=== PATIENT | male | born 1960 | race Caucasian/White ===

== ENCOUNTER 2019-10-05 17:23 | Emergency (ER) | payer MEDICARE, OTHER ==
[~2019-10-05] VITALS: Ht 172.7 cm; Wt 72.6 kg
[~2019-10-05 17:23] MED LIST: ANIMAL CHEWS1 EACH PO; ATARAX50 MG ORAL; CITALOPRAM HBR20 M1 ORAL; CYCLOBENZAPRINE10 MG ORAL; FOLIC ACID1 MG ORAL; IBUPROFEN400 MG ORAL; MINOCYCLINE HC100 MG PO; NICODERM CQ1 EACH TD; PEPCID40 MG PO; QUETIAPINE FUMA50 MG ORAL; REFRESH TEARS15 ML BOTH EYES; UNOBMED; VENLAFAXINE HCL25 MG ORAL; VENLAFAXINE HCL75 M2 ORAL; VITAMIN B-1100 MG ORAL
--- NOTE | 2019-10-05 17:47 | Emergency Room Report ---
History of Present Illness General Chief Complaint: Overdose Source: Patient, EMS (Niko Griffith MD) Present Illness HPI 59-year-old male presents with acute alcohol intoxication and Valium intoxication patient states he was drinking was not trying to kill himself he was on a 5150 last week, his current intoxication is aggravated by alcohol and benzodiazepines, severity is moderate, constant patient was drinking earlier today alleviated by not drinking patient presents for evaluation history is limited due to patient's acute intoxication (Niko Griffith MD) Allergies: Coded Allergies: No Known Allergies (Unverified , 10/23/13) COVID-19 Screening Contact w/high risk pt: No Recent Travel to affected area: No Experienced COVID-19 symptoms?: No (Niko Griffith MD) Patient History Limited by: medical condition - Acutely intoxicated Social History: Reports: alcohol use Reviewed Nursing Documentation: PMH: Agreed; PSxH: Agreed (Niko Griffith MD) Nursing Documentation-PMH Hx Hypertension: Yes Hx Gastrointestinal Problems: Yes - GERD (Niko Griffith MD) Review of Systems All Other Systems: limited - Acutely intoxicated (Niko Griffith MD) Physical Exam Vital Signs Date Time Temp Pulse Resp B/P (MAP) Pulse Ox O2 Delivery O2 Flow Rate FiO2 10/05/19 17:25 98.2 96 18 107/79 (88) 95 Room Air Sp02 EP Interpretation: reviewed, normal General Appearance: no apparent distress, alert Head: normocephalic, atraumatic Eyes: bilateral eye PERRL, bilateral eye EOMI ENT: uvula midline, moist mucus membranes Neck: supple, thyroid normal, supple/symm/no masses Respiratory: lungs clear, no respiratory distress, no retraction, no accessory muscle use Cardiovascular #1: normal peripheral pulses, regular rate, rhythm, no edema, no gallop, no murmur Gastrointestinal: non tender, soft, no guarding, no rebound Musculoskeletal: normal inspection Neurologic: alert, responsive Psychiatric: mood/affect normal Skin: no rash, warm/dry (Niko Griffith MD) Medical Decision Making Diagnostic Impression: Primary Impression: Acute alcoholic intoxication Qualified Codes: F10.920 - Alcohol use, unspecified with intoxication, uncomplicated Additional Impression: Suicidal ideation ER Course 59-year-old male presents with acute alcohol intoxication. Possible suicidal gesture, patient with a known history of multiple psychiatric colds known to overdose on benzodiazepines as well as alcohol in tandem. Patient presents for evaluation currently is on a 5150 Patient will be medically cleared once alcohol level is below 100, redraw at 4 AM Patient signed out to nighttime Dr. Claros Laboratory Tests Test 10/05/19 17:59 White Blood Count 9.9 K/UL (4.8-10.8) Red Blood Count 3.67 M/UL (4.70-6.10) L Hemoglobin 12.7 G/DL (14.2-18.0) L Hematocrit 39.2 % (42.0-52.0) L Mean Corpuscular Volume 107 FL (80-99) H Mean Corpuscular Hemoglobin 34.6 PG (27.0-31.0) H Mean Corpuscular Hemoglobin Concent 32.4 G/DL (32.0-36.0) Red Cell Distribution Width 12.5 % (11.6-14.8) Platelet Count 195 K/UL (150-450) Mean Platelet Volume 6.2 FL (6.5-10.1) L Neutrophils (%) (Auto) 32.7 % (45.0-75.0) L Lymphocytes (%) (Auto) 54.7 % (20.0-45.0) H Monocytes (%) (Auto) 9.7 % (1.0-10.0) Eosinophils (%) (Auto) 0.6 % (0.0-3.0) Basophils (%) (Auto) 2.3 % (0.0-2.0) H Urine Color Pale yellow Urine Appearance Clear Urine pH 5 (4.5-8.0) Urine Specific [place] 1.010 (1.005-1.035) Urine Protein Negative (NEGATIVE) Urine Glucose (UA) Negative (NEGATIVE) Urine Ketones Negative (NEGATIVE) Urine Blood Negative (NEGATIVE) Urine Nitrite Negative (NEGATIVE) Urine Bilirubin Negative (NEGATIVE) Urine Urobilinogen Normal MG/DL (0.0-1.0) Urine Leukocyte Esterase Negative (NEGATIVE) Sodium Level 146 MMOL/L (136-145) H Potassium Level 3.6 MMOL/L (3.5-5.1) Chloride Level 105 MMOL/L (98-107) Carbon Dioxide Level 26 MMOL/L (21-32) Anion Gap 15 mmol/L (5-15) Blood Urea Nitrogen 6 mg/dL (7-18) L Creatinine 0.7 MG/DL (0.55-1.30) Estimated Glomerular Filtration Rate > 60 mL/min (>60) Glucose Level 73 MG/DL (74-106) L Calcium Level 7.9 MG/DL (8.5-10.1) L Total Bilirubin 0.3 MG/DL (0.2-1.0) Aspartate Amino Transferase (AST) 89 U/L (15-37) H Alanine Aminotransferase (ALT) 71 U/L (12-78) Alkaline Phosphatase 85 U/L (46-116) Total Protein 7.3 G/DL (6.4-8.2) Albumin 3.5 G/DL (3.4-5.0) Globulin 3.8 g/dL Albumin/Globulin Ratio 0.9 (1.0-2.7) L Salicylates Level 4.6 ug/mL (2.8-20) Urine Opiates Screen Positive (NEGATIVE) H Acetaminophen Level 5 MCG/ML (10-30) L Urine Barbiturates Screen Negative (NEGATIVE) Phencyclidine (PCP) Screen Negative (NEGATIVE) Urine Amphetamines Screen Negative (NEGATIVE) Urine Benzodiazepines Screen Positive (NEGATIVE) H Urine Cocaine Screen Negative (NEGATIVE) Urine Marijuana (THC) Screen Positive (NEGATIVE) H Serum Alcohol 389 mg/dL (Niko Griffith MD) ER Course Patient signed out to me. He presents with suicidal thoughts and alcohol intoxication. He was placed on a 5150 by police. He is clinically sober now. Alcohol level less than 100. He is medically cleared for psychiatric evaluation. (Kashmir Claros MD) ER Course Patient signed out to me. He was placed on a 5150 hold due to concern for intentional overdose. Speaking to the patient this morning he denied intentional overdose or suicidal ideations. He was taking opioids for a recent dental procedure and also had some alcoholic beverages. This morning again he realizes that that was dangerous he states he no longer has any opioids in his household. And he no longer has any planned dental work. Patient seen by Dr. Carrera and cleared from the 5150 hold. Patient stable for discharge to self- care. At time of discharge alert oriented no suicidal homicidal ideations and states again he would no longer drink and take opioids. (Devin Clayton M.D.) Last Vital Signs Date Time Temp Pulse Resp B/P (MAP) Pulse Ox O2 Delivery O2 Flow Rate FiO2 10/05/19 17:25 98.2 96 18 107/79 (88) 95 Room Air (Niko Griffith MD) Disposition: HOME, SELF-CARE Condition: Improved Niko Griffith MD October 05, 2019 17:47 Kashmir Claros MD October 06, 2019 03:37 Devin Clayton M.D. October 06, 2019 14:48
[2019-10-05 18:09] LABS: BASOPHILS % (AUTO) 2.3 % (0.0-2.0); EOSINOPHILS % (AUTO) 0.6 % (0.0-3.0); HEMATOCRIT 39.2 % (42.0-52.0); HEMOGLOBIN 12.7 G/DL (14.2-18.0); LYMPHOCYTES % (AUTO) 54.7 % (20.0-45.0); MEAN CORPUSCULAR VOLUME 107 FL (80-99); MONOCYTES % (AUTO) 9.7 % (1.0-10.0); NEUTROPHILS % (AUTO) 32.7 % (45.0-75.0); PLATELET COUNT 195 K/UL (150-450); RED BLOOD COUNT 3.67 M/UL (4.70-6.10); RED CELL DISTRIBUTION WIDTH 12.5 % (11.6-14.8); WHITE BLOOD COUNT 9.9 K/UL (4.8-10.8)
[2019-10-05 18:10] LABS: APPEARANCE,URINE CLEAR; BILIRUBIN, URINE NEGATIVE (NEGATIVE); COLOR,URINE PALE YELLOW; GLUCOSE, URINE (UA) NEGATIVE (NEGATIVE); KETONES,URINE NEGATIVE (NEGATIVE); LEUKOCYTE ESTERASE ,URINE NEGATIVE (NEGATIVE); NITRITE,URINE NEGATIVE (NEGATIVE); PH,URINE 5 (4.5-8.0); PROTEIN,URINE NEGATIVE (NEGATIVE); UROBILINOGEN,URINE NORMAL MG/DL (0.0-1.0)
[2019-10-05 18:17] LABS: ANION GAP 15 mmol/L (5-15); BLOOD UREA NITROGEN 6 mg/dL (7-18); CALCIUM 7.9 MG/DL (8.5-10.1); CARBON DIOXIDE 26 MMOL/L (21-32); CHLORIDE 105 MMOL/L (98-107); CREATININE 0.7 MG/DL (0.55-1.30); POTASSIUM 3.6 MMOL/L (3.5-5.1); SODIUM 146 MMOL/L (136-145)
[2019-10-05 18:23] LABS: ALANINE AMINOTRANSFERASE 71 U/L (12-78); ALBUMIN 3.5 G/DL (3.4-5.0); ALBUMIN/GLOBULIN RATIO 0.9 (1.0-2.7); ALKALINE PHOSPHATASE 85 U/L (46-116); ASPARTATE AMINO TRANSFERASE 89 U/L (15-37); BILIRUBIN,TOTAL 0.3 MG/DL (0.2-1.0)
[2019-10-05 19:56] VITALS: BP 110/81
[2019-10-05 20:33] VITALS: BP 105/82
[2019-10-06 00:10] VITALS: BP 122/82
[2019-10-06] MEDS ORDERED: Ketorolac 30mg Inj IV ONE (02:45)
[2019-10-06] MEDS ORDERED: dilTIAZem HCl 25mg/5ml Inj IVP ONE (03:30)
[2019-10-06 04:16] VITALS: BP 112/75
[2019-10-06 05:50] VITALS: BP 115/81
[2019-10-06 07:54] VITALS: BP 114/82
[2019-10-06 11:30] VITALS: BP 120/84
[2019-10-06 14:59] VITALS: BP 124/86
--- NOTE | 2019-10-06 21:29 | Consultation ---
DATE OF CONSULTATION: 10/05/2019 HISTORY OF PRESENT ILLNESS: The patient has been admitted on a 5150 after he called himself 911 and reported accidental overdose. Patient is now here on a 5150 in the ER. The patient stated that he is addicted to alcohol. He stated that he had dental procedure and he had to remove his teeth. He was given pain medication. Apparently, he mixed the alcohol with the pain medication and he overdosed and ended in the emergency room. Upon evaluation, the patient is not depressed nor manic or psychotic. No suicidal or homicidal ideation. The patient is requesting to be discharged. I recommend voluntary hospitalization. The patient stated that he is not depressed nor suicidal. He if he was, he would not call 911. The patient has kids who are in [place]. He lives in his own apartment. He has two sisters. They are in [place] . PAST MEDICAL HISTORY: The patient is stable, has no active medical issues. ALLERGIES: No known drug allergies. SUBSTANCE USE HISTORY: Significant for alcohol dependence. He drinks every day. In addition, I believe he is addicted to benzodiazepine as well as pain medication. He is not seeing a psychiatrist for his current issues. MENTAL STATUS EXAMINATION: The patient is alert, oriented times self, place, situation and date. Mood is neutral. Affect is flat. Thought process is linear and goal oriented. Thought content, no suicidal or homicidal ideation. Cognition is intact. Insight and judgment fair. ASSESSMENT: [place] I Opioid. Alcohol dependence. Rule out benzodiazepine dependence. [place] II Deferred. [place] III Status post accidental overdose. [place] IV Low. [place] V 50. PLAN: 1. We lifted 5150. The patient is not having any suicidal or homicidal ideation. 2. The patient is not an imminent danger to self or others. 3. Discharge the patient back to his apartment as he is not suicidal or homicidal. Carlos Carrera M.D. DR: ELÍAS JOB#: [id number] CC:
== END 2019-10-06 14:59 | disposition home or self-care (01) ==
LOC: EDBD 17:23 → EMR 18:00
DX: F10.920 Alcohol use, unspecified with intoxication, uncomplicated (principal); R45.851 Suicidal ideations; I10 Essential (primary) hypertension; K21.9 Gastro-esophageal reflux disease without esophagitis
CPT/HCPCS: 36415; 80053; 80307; 81003; 85025; 96361; 96374; 99285; G0480; J1885; J7030